=== PATIENT | female | born 1990 | race Caucasian/White ===

== ENCOUNTER 2022-01-14 11:12 | Emergency (ER) | payer BC, SELFPAY ==
[2022-01-14 11:18] VITALS: BP 124/69; PULSE 69; RESP 18; TEMP 37.1; O2SAT 100
--- NOTE | 2022-01-14 11:46 | ED.SKABFB ---
HPI - Skin/Abscess/Foreign Bdy General Chief complaint: Skin/Abscess/Foreign Body Stated complaint: rash on legs and stomach Time Seen by Provider: 01/14/22 11:30 Source: patient, RN notes reviewed and old records reviewed Mode of arrival: ambulatory Limitations: no limitations History of Present Illness HPI narrative: 31 year old female presents to [facility] with one week duration of rash to her upper thighs which is red raised but is not itchy.Patient states that rash has now diffuse on other areas of body. Patient states that eyes have become itchy but no drainage or redness of eyes noted. Patient reports that she has taken allergy medications and also some Benadryl which did initially help. Patient reports no new medications, foods, laundry products, body lotions or soaps or any contact with plants or chemicals. She denies any difficulty with her breathing or any difficulty with swallowing. MD complaint: rash Onset (ago): week(s) (1) Treatments prior to arrival: Benadryl and other (allergy medication) Related Data Home Medications Medication Instructions Recorded Confirmed levonorgestrel [Mirena] 1 device INTRAUTERINE ONCE 01/14/22 01/14/22 Allergies Allergy/AdvReac Type Severity Reaction Status Date / Time No Known Allergies Allergy Verified 01/14/22 11:24 Review of Systems Review of Systems: CONSTITUTIONAL: Denies fever, chills, or sweats. EYES: Denies visual changes, redness, or discharge.reports eyes itchy ENT: Denies rhinorrhea, congestion, sore throat, or otalgia. CARDIOVASCULAR: Denies chest pain, palpitations, or edema. RESPIRATORY: Denies cough or dyspnea. GASTROINTESTINAL: Denies abdominal pain, nausea, vomiting, or diarrhea. GENITOURINARY: Denies dysuria or hematuria. SKIN: Positive rash to tops of upper legs which has spread no itching MUSCULOSKELETAL: Denies back pain, joint pain, or myalgia. NEUROLOGIC: Denies headache, numbness, or weakness. PSYCHIATRIC: Denies anxiety or depression. All systems reviewed & are unremarkable except as noted in HPI and below PMFSH Past Medical History Medical History (Updated 01/15/22 @ 09:38 by Opal Alvarado NP) No pertinent past medical history Surgical History Surgical History (Updated 01/15/22 @ 09:39 by Opal Alvarado NP) No history of previous surgery Social History Social History (Updated 01/15/22 @ 09:39 by Opal Alvarado NP) Smoking status: Never smoker Alcohol intake: current Alcohol use details: rare Substance use type: does not use Living arrangements: with family Gender identity (if verbalized by the patient): Female Comments At time of signature, agree with nursing past medical, surgical, social and family history. There is no relevant family history pertinent to the presenting complaint Exam Narrative: GENERAL: Well-appearing, well-nourished, and in no acute distress. HEAD: Normocephalic, atraumatic. EYES: PERRLA and EOMI. ENT: Nares clear, no rhinorrhea or epistaxis. Mucous membranes moist.TM's normal , throat pink with no tonsil swelling NECK: Supple.no lymphadenopathy CHEST: Clear to auscultation. No respiratory distress, SAO2 100% on room air HEART: Regular rate and rhythm. No murmur heard. Normal peripheral pulses. ABDOMEN: Soft, nontender, nondistended, normal active bowel sounds. EXTREMITIES: Normal range of motion. No edema. SKIN: Warm, dry, scattered raised red rash noted initially to tops of thighs now diffuse reports no itching of rash,no vesicles or pustular formation, has itchy eyes NEURO: No focal deficits. Alert and oriented x3. Course Course Level of Care: Express Care Visit Vital Signs Vital signs: Vital Signs Temperature 37.1 C 01/14/22 11:18 Pulse Rate 69 01/14/22 11:18 Respiratory Rate 18 01/14/22 11:18 Blood Pressure 124/69 01/14/22 11:18 Pulse Oximetry 100 01/14/22 11:18 Temperature 37.1 C 01/14/22 11:18 Pulse Rate 69 01/14/22 11:18 Respiratory Rate
== END 2022-01-14 12:05 | disposition home or self-care (01) ==
PROVIDERS: Emergency Provider Registered Nurse
DX: L25.9 Unspecified contact dermatitis, unspecified cause (principal)
CPT/HCPCS: 99213; G0463